=== PATIENT | female | born 1985 | race Caucasian/White ===

== ENCOUNTER 2016-10-09 22:22 | Emergency (ER) | payer MEDICAID ==
[2016-10-09 22:23] VITALS: BMI 35.9
[2016-10-09 22:30] VITALS: BP 109/49; PULSE 71; RESP 16; TEMP 98.4; O2SAT 98
--- NOTE | 2016-10-09 23:22 | ED PDOC ---
HPI: Skin/Bite Injury Time Seen by Provider: 10/09/16 23:19 Chief Complaint (Nursing): Abnormal Skin Integrity Chief Complaint (Provider): rash History Per: Patient (30 y/o female here with rash along upper arms x 2 days noted after walking outdoors. Patient states she believes symptoms began after working in sun. Notes moderate itching in upper extremities. Has tried benadryl without relief.) Past Medical History Reviewed: Historical Data, Nursing Documentation, Vital Signs Vital Signs: Last Vital Signs Temp 98.4 F 10/09/16 22:27 Pulse 71 10/09/16 22:27 Resp 16 10/09/16 22:27 BP 109/49 L 10/09/16 22:27 Pulse Ox 98 10/09/16 22:27 - Medical History PMH: Gall Bladder Disease Denies: Chronic Kidney Disease - Family History Family History: States: No Known Family Hx - Home Medications Home Medications: Ambulatory Orders Medication Instructions Recorded oxyCODONE/Acetaminophen [Percocet 1 tab PO Q4H PRN #0 tab 01/09/16 5/325 mg Tab] Cetirizine HCl [Zyrtec] 10 mg PO DAILY #7 capsule 10/09/16 Hydrocortisone 1% Oint [Cortizone 0.5 gm TP BID #1 tube 10/09/16 1% Oint] Mupirocin 2% Ointment [Bactroban 0.5 gm TP TID #1 tube 10/09/16 Ointment] - Allergies Allergies/Adverse Reactions: Allergies Allergy/AdvReac Type Severity Reaction Status Date / Time No Known Allergies Allergy Verified 07/11/15 09:06 Review of Systems ROS Statement: Except As Marked, All Systems Reviewed And Found Negative Physical Exam - Reviewed Nursing Documentation Reviewed: Yes Vital Signs Reviewed: Yes - Physical Exam Appears: Positive for: Well, Non-toxic, No Acute Distress Head Exam: Positive for: ATRAUMATIC, NORMAL INSPECTION, NORMOCEPHALIC Skin: Positive for: Normal Color, Warm, Rash (bilateral lateral aspect of arms with multiple small papular lesions nontender.) Eye Exam: Positive for: EOMI, Normal appearance, PERRL ENT: Positive for: Normal ENT Inspection Neck: Positive for: Normal, Painless ROM Cardiovascular/Chest: Positive for: Regular Rate, Rhythm Respiratory: Positive for: CNT, Normal Breath Sounds Gastrointestinal/Abdominal: Positive for: Normal Exam, Bowel Sounds, Soft Back: Positive for: Normal Inspection Extremity: Positive for: Normal ROM Neurologic/Psych: Positive for: Alert, Oriented - ECG O2 Sat by Pulse Oximetry: 98 Disposition - Clinical Impression Clinical Impression: Folliculitis - Patient ED Disposition Is Patient to be Admitted: No - Disposition Referrals: Ronnie Grigsby MD [Staff Provider] - Disposition: Routine/Home Disposition Time: 23:22 Condition: FAIR Prescriptions: Cetirizine HCl [Zyrtec] 10 mg PO DAILY #7 capsule Hydrocortisone 1% Oint [Cortizone 1% Oint] 0.5 gm TP BID #1 tube Mupirocin 2% Ointment [Bactroban Ointment] 0.5 gm TP TID #1 tube Instructions: Folliculitis (ED)
== END 2016-10-09 23:41 | disposition home or self-care (01) ==
LOC: H.ER 22:22
DX: L73.9 Follicular disorder, unspecified (principal)

== ENCOUNTER 2016-11-10 21:05 | Emergency (ER) | payer MEDICAID ==
[2016-11-10 21:05] VITALS: BMI 35.9
[2016-11-10 21:31] VITALS: BP 113/47; PULSE 61; RESP 16; TEMP 98.7; O2SAT 98
--- NOTE | 2016-11-10 22:45 | ED PDOC ---
HPI: Allergic Reaction Time Seen by Provider: 11/10/16 22:29 Chief Complaint (Nursing): Allergic Reaction History Per: Patient Additional Complaint(s): Pt. states for the past month she's had a pruritic rash throughout both her arms. Pt. was initially seen her 2 weeks ago for same and was prescribed Zyrtec , Bactroban, and Hydrocortisone 1% cream which improved the rash slightly but once she stopped using the medications rash worsened. Denies fever, pain, numbness, tingling. Past Medical History Reviewed: Historical Data, Nursing Documentation, Vital Signs Vital Signs: Last Vital Signs Temp 98.7 F 11/10/16 21:27 Pulse 61 11/10/16 21:27 Resp 16 11/10/16 21:27 BP 113/47 L 11/10/16 21:27 Pulse Ox 98 11/10/16 21:27 - Medical History PMH: Gall Bladder Disease Denies: Chronic Kidney Disease - Family History Family History: States: No Known Family Hx - Home Medications Home Medications: Ambulatory Orders Medication Instructions Recorded oxyCODONE/Acetaminophen [Percocet 1 tab PO Q4H PRN #0 tab 01/09/16 5/325 mg Tab] Cetirizine HCl [Zyrtec] 10 mg PO DAILY #7 capsule 10/09/16 Hydrocortisone 1% Oint [Cortizone 0.5 gm TP BID #1 tube 10/09/16 1% Oint] Mupirocin 2% Ointment [Bactroban 0.5 gm TP TID #1 tube 10/09/16 Ointment] Triamcinolone Acetonide 0.1% 1 appl TP BID PRN #1 tube 11/10/16 [Kenalog 0.1% CREAM] - Allergies Allergies/Adverse Reactions: Allergies Allergy/AdvReac Type Severity Reaction Status Date / Time No Known Allergies Allergy Verified 07/11/15 09:06 Review of Systems ROS Statement: Except As Marked, All Systems Reviewed And Found Negative Skin: Positive for: Rash Physical Exam - Physical Exam Appears: Positive for: Well, Non-toxic, No Acute Distress Skin: Positive for: Normal Color, Warm, Rash (multiple hypopigmented papules on both arms from upper arm to extending to hands) - ECG O2 Sat by Pulse Oximetry: 98 - Progress ED Course And Treament: Pt. instructed to f/u with dermatology for further evaluation. Disposition - Clinical Impression Clinical Impression: Rash - Patient ED Disposition Is Patient to be Admitted: No - Disposition Referrals: [facility] [Outside] Disposition: Routine/Home Disposition Time: 22:50 Condition: STABLE Prescriptions: Triamcinolone Acetonide 0.1% [Kenalog 0.1% CREAM] 1 appl TP BID PRN #1 tube PRN Reason: Rash Instructions: Acute Rash (ED) Print Language: AUSTRALIAN
== END 2016-11-10 23:28 | disposition home or self-care (01) ==
LOC: H.ER 21:05
DX: T78.40XA Allergy, unspecified, initial encounter (principal)

== ENCOUNTER 2017-08-10 23:06 | Emergency (ER) | payer MEDICAID ==
[2017-08-10 23:06] VITALS: BMI 35.9
[2017-08-10 23:14] VITALS: BP 113/65; PULSE 66; RESP 18; TEMP 98.7; O2SAT 99
--- NOTE | 2017-08-10 23:58 | ED PDOC ---
HPI: Chest Pain Time Seen by Provider: 08/10/17 23:16 Chief Complaint (Nursing): Chest Pain Chief Complaint (Provider): chest pain History Per: Patient History/Exam Limitations: no limitations Onset/Duration Of Symptoms: Days (1 day), Intermittent Episodes Quality: Sharp Associated Symptoms: denies: Nausea, Dyspnea, Diaphoresis, Syncope Additional Complaint(s): Sudden onset chest pain midsternum at 8am this morning, had to stop short during episode, resolved after <1 minute. Recurred today at 930p lasted for a few minutes and had to lie down for it to resolve. No cough or shortness of breath No leg swelling No increase stress No nausea or vomiting. PMD Dr Fisher Past Medical History Reviewed: Historical Data, Nursing Documentation, Vital Signs Vital Signs: Last Vital Signs Temp 98.7 F 08/10/17 23:11 Pulse 66 08/10/17 23:11 Resp 18 08/10/17 23:11 BP 113/65 08/10/17 23:11 Pulse Ox 99 08/12/17 14:57 - Medical History PMH: Gall Bladder Disease Denies: Chronic Kidney Disease - Surgical History Surgical History: Cholecystectomy - Family History Family History: States: Diabetes - Social History Current smoker - smoking cessation education provided: Yes Alcohol: Occasional Drugs: Denies - Home Medications Home Medications: Ambulatory Orders Medication Instructions Recorded oxyCODONE/Acetaminophen [Percocet 1 tab PO Q4H PRN #0 tab 01/09/16 5/325 mg Tab] Cetirizine HCl [Zyrtec] 10 mg PO DAILY #7 capsule 10/09/16 Hydrocortisone 1% Oint [Cortizone 0.5 gm TP BID #1 tube 10/09/16 1% Oint] Mupirocin 2% Ointment [Bactroban 0.5 gm TP TID #1 tube 10/09/16 Ointment] Triamcinolone Acetonide 0.1% 1 appl TP BID PRN #1 tube 11/10/16 [Kenalog 0.1% CREAM] Nitrofurantoin Macrocrystals 100 mg PO BID #14 cap 08/11/17 [Macrobid] - Allergies Allergies/Adverse Reactions: Allergies Allergy/AdvReac Type Severity Reaction Status Date / Time No Known Allergies Allergy Verified 07/11/15 09:06 Review of Systems ROS Statement: Except As Marked, All Systems Reviewed And Found Negative (and as per HPI) Cardiovascular: Positive for: Chest Pain, Light Headedness Physical Exam - Reviewed Nursing Documentation Reviewed: Yes Vital Signs Reviewed: Yes - Physical Exam Appears: Positive for: Non-toxic, No Acute Distress Head Exam: Positive for: ATRAUMATIC, NORMOCEPHALIC Skin: Positive for: Warm, Dry Eye Exam: Positive for: EOMI, PERRL ENT: Negative for: Pharyngeal Erythema, Tonsillar Exudate Neck: Positive for: Painless ROM, Supple Cardiovascular/Chest: Positive for: Regular Rate, Rhythm. Negative for: Murmur Respiratory: Positive for: Normal Breath Sounds. Negative for: Wheezing Gastrointestinal/Abdominal: Positive for: Soft. Negative for: Tenderness Back: Positive for: Normal Inspection. Negative for: Decreased ROM Extremity: Positive for: Normal ROM. Negative for: Deformity Lymphatic: Negative for: Adenopathy Neurologic/Psych: Positive for: Alert. Negative for: Motor/Sensory Deficits - Laboratory Results Result Diagrams: 08/11/17 00:17 08/11/17 00:17 - ECG ECG: Positive for: Interpreted By Me ECG Rhythm: Positive for: Normal QRS, Normal ST Segment, Sinus Rhythm O2 Sat by Pulse Oximetry: 99 Pulse Ox Interpretation: Normal Disposition - Clinical Impression Clinical Impression: Chest wall pain - Disposition Disposition: Transfer of Care Disposition Time: 00:00 Condition: STABLE Prescriptions: Nitrofurantoin Macrocrystals [Macrobid] 100 mg PO BID #14 cap Patient Signed Over To: Bing Dover Handoff Comments: Pending ER workup, reassessment and final ER disposition
--- NOTE | 2017-08-11 00:13 | ED PDOC ---
- Laboratory Results Result Diagrams: 08/11/17 00:17 08/11/17 00:17 - ECG O2 Sat by Pulse Oximetry: 99 Medical Decision Making Medical Decision Makin Patient signed out to provider from Dr. Alberts pending ED work up, re- evaluation, and final disposition. 0135 Labs reviewed: no clinically significant abnormalities except moderate leukocytes were present on UA. Patient is stable for discharge home with antibiotics. Dx: chest wall pain uti ~ Scribe Attestation: Documented by Mali Lazaro, acting as a scribe for Bing Dover MD. Provider Scribe Attestation: All medical record entries made by the Scribe were at my direction and personally dictated by me. I have reviewed the chart and agree that the record accurately reflects my personal performance of the history, physical exam, medical decision making, and the department course for this patient. I have also personally directed, reviewed, and agree with the discharge instructions and disposition. Disposition Counseled Patient/Family Regarding: Studies Performed, Diagnosis, Need For Followup - Clinical Impression Clinical Impression: Chest wall pain - POA Present On Arrival: None - Disposition Referrals: [facility] [Outside] [facility] [Outside] Disposition: Routine/Home Disposition Time: 01:05 Condition: IMPROVED Additional Instructions: follow up with your primary doctor in 1-2 days return to the ED with any worsening or concerning symptoms Prescriptions: Nitrofurantoin Macrocrystals [Macrobid] 100 mg PO BID #14 cap Instructions: Urinary Tract Infection, Adult (DC), Costochondritis (DC) Forms: [employer] (Hungarian), [facility] ED School/Work Excuse
[2017-08-11 00:15] LABS: SQUAMOUS EPITHIAL 14 /hpf (0-5); URINE BACTERIA RARE (<OCC); URINE BILIRUBIN NEGATIVE (NEGATIVE); URINE BLOOD NEGATIVE (NEGATIVE); URINE CLARITY CLOUDY (Clear); URINE COLOR YELLOW (YELLOW); URINE GLUCOSE (UA) NEG (Normal); URINE LEUKOCYTE ESTERASE MOD Leu/uL (Negative); URINE PROTEIN NEGATIVE (NEGATIVE); URINE UROBILINOGEN 0.2-1.0 mg/dL (0.2-1.0)
[2017-08-11 00:21] LABS: BASO # 0.1 K/uL (0.0-0.2); BASO % 0.8 % (0.0-2.0); EOS # 0.3 K/uL (0.0-0.7); EOS % 2.8 % (0.0-4.0); HEMOGLOBIN 11.5 g/dL (12.0-16.0); LYMPH % 39.1 % (20.0-40.0); MEAN CELL VOLUME 83.1 fl (81.0-99.0); MEAN CORPUSCULAR HEMOGLOBIN 27.5 pg (27.0-31.0); MEAN CORPUSCULAR HGB CONC 33.1 g/dL (33.0-37.0); MEAN PLATELET VOLUME 8.3 fl (7.2-11.7); MONO # 0.8 K/uL (0.0-0.8); NEUT # 5.1 K/uL (1.8-7.0); NEUT % 49.3 % (50.0-75.0); RBC 4.17 Mil/uL (3.80-5.20); RED CELL DISTRIBUTION WIDTH 14.6 % (11.5-14.5); WHITE BLOOD COUNT 10.3 K/uL (4.8-10.8)
[2017-08-11 00:31] LABS: ALB/GLOB RATIO 1.1 (1.0-2.1); ALBUMIN 3.9 g/dL (3.5-5.0); ALT/SGPT 34 U/L (9-52); AST/SGOT 31 U/L (14-36); BLOOD UREA NITROGEN 12 mg/dl (7-17); GFR AFRICAN-AMERICAN > 60; GFR NON-AFRICAN AMERICAN > 60
--- NOTE | 2017-08-11 10:38 | CARD ---
APPROVED REPORT EKG Measurement Heart [id number] <Conclusion> Normal sinus rhythm Normal ECG
== END 2017-08-11 02:57 | disposition home or self-care (01) ==
LOC: H.ER 23:06
DX: R07.9 Chest pain, unspecified (principal); F17.200 Nicotine dependence, unspecified, uncomplicated; N39.0 Urinary tract infection, site not specified

== ENCOUNTER 2018-04-05 20:01 | Emergency (ER) | payer MEDICAID ==
[2018-04-05 20:02] VITALS: BMI 35.9
[2018-04-05] MEDS ORDERED: Naproxen 500 MG TAB PO ONE (21:59)
--- NOTE | 2018-04-05 22:04 | ED PDOC ---
HPI: Back Time Seen by Provider: 04/05/18 21:47 Chief Complaint (Nursing): Back Pain Chief Complaint (Provider): low back pain History Per: Patient History/Exam Limitations: no limitations Onset/Duration Of Symptoms: Days (3) Current Symptoms Are (Timing): Still Present Exacerbating Factor(s): Turning, Movement, Sitting, Standing Additional Complaint(s): 32 y/o female presents for evaluation of low back pain x 3 days. 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 Patient applied icy hot patch but was not able to go to work last night due to pain. Denies fever, nausea/vomiting, abdominal pain, urinary symptoms, numbness/weakness lower extremities, bowel/bladder incontinence. Past Medical History Reviewed: Historical Data, Nursing Documentation, Vital Signs Vital Signs: Last Vital Signs Temp 97.9 F 04/05/18 21:45 Pulse 705 H 04/05/18 21:45 Resp 16 04/05/18 21:45 BP 139/65 04/05/18 21:45 Pulse Ox 100 04/05/18 21:45 - Medical History PMH: Gall Bladder Disease Denies: Chronic Kidney Disease - Surgical History Surgical History: Cholecystectomy - Family History Family History: States: Diabetes - Home Medications Home Medications: Ambulatory Orders Medication Instructions Recorded oxyCODONE/Acetaminophen [Percocet 1 tab PO Q4H PRN #0 tab 01/09/16 5/325 mg Tab] Cetirizine HCl [Zyrtec] 10 mg PO DAILY #7 capsule 10/09/16 Hydrocortisone 1% Oint [Cortizone 0.5 gm TP BID #1 tube 10/09/16 1% Oint] Mupirocin 2% Ointment [Bactroban 0.5 gm TP TID #1 tube 10/09/16 Ointment] Triamcinolone Acetonide 0.1% 1 appl TP BID PRN #1 tube 11/10/16 [Kenalog 0.1% CREAM] Nitrofurantoin Macrocrystals 100 mg PO BID #14 cap 08/11/17 [Macrobid] Cyclobenzaprine [Cyclobenzaprine 10 mg PO BID PRN #14 tab 04/05/18 HCl] Naproxen [Naprosyn] 500 mg PO Q12 PRN #20 tablet 04/05/18 - Allergies Allergies/Adverse Reactions: Allergies Allergy/AdvReac Type Severity Reaction Status Date / Time No Known Allergies Allergy Verified 04/05/18 21:45 Review of Systems ROS Statement: Except As Marked, All Systems Reviewed And Found Negative Musculoskeletal: Positive for: Back Pain Physical Exam - Reviewed Nursing Documentation Reviewed: Yes Vital Signs Reviewed: Yes - Physical Exam Appears: Positive for: Well, Non-toxic, No Acute Distress Head Exam: Positive for: ATRAUMATIC, NORMAL INSPECTION, NORMOCEPHALIC Skin: Positive for: Normal Color Eye Exam: Positive for: Normal appearance ENT: Positive for: Normal ENT Inspection Cardiovascular/Chest: Positive for: Regular Rate, Rhythm Respiratory: Positive for: Normal Breath Sounds Gastrointestinal/Abdominal: Positive for: Normal Exam Back: Positive for: Vertebral Tenderness (diffuse lspine; no bony deformity). Negative for: L CVA Tenderness, R CVA Tenderness, Decreased ROM, Muscle Spasm Extremity: Positive for: Normal ROM Neurologic/Psych: Positive for: Alert, Oriented (x3) - ECG O2 Sat by Pulse Oximetry: 100 - Other Rad xray lspine X-Ray: Viewed By Nc X-Ray Interpretation: no acute findings - Progress ED Course And Treament: -upreg -lspine xray -naproxen PO -flexeril PO Patient educated on findings, discharged with rx Naproxen, Flexeril Advised warm compresses. Rest Follow up PMD within 2-3 days Return precautions given Disposition - Clinical Impression Clinical Impression: Low back pain - Patient ED Disposition Is Patient to be Admitted: No Counseled Patient/Family Regarding: Studies Performed, Diagnosis, Need For Followup, Rx Given - Disposition Disposition: Routine/Home Disposition Time: 23:44 Condition: IMPROVED Prescriptions: Cyclobenzaprine [Cyclobenzaprine HCl] 10 mg PO BID PRN #14 tab PRN Reason: Muscle Spasm Naproxen [Naprosyn] 500 mg PO Q12 PRN #20 tablet PRN Reason: Pain, Moderate (4-7) Instructions: Low Back Pain in Adults Forms: [facility] (Ethiopian), [facility] ED School/Work Excuse
[2018-04-06 00:10] VITALS: BP 110/70; PULSE 66; RESP 18; TEMP 98.2; O2SAT 98
--- NOTE | 2018-04-06 11:50 | RAD ---
Date of service: 04/05/2018 PROCEDURE: Radiographs of the Lumbar Spine. HISTORY: low back pain COMPARISON: No prior. FINDINGS: BONES: Normal alignment. No listhesis. No fracture. DISC SPACES: Unremarkable. OTHER FINDINGS: None. IMPRESSION: Unremarkable radiographs of the lumbar spine.
== END 2018-04-06 00:11 | disposition home or self-care (01) ==
LOC: H.ER 20:01
DX: M54.5 Low back pain (principal)

== ENCOUNTER 2018-04-15 02:04 | Emergency (ER) | payer MEDICAID ==
[2018-04-15 02:04] VITALS: BMI 35.9
[2018-04-15 02:25] VITALS: BP 116/79; PULSE 64; RESP 16; O2SAT 98
[2018-04-15 03:57] LABS: SQUAMOUS EPITHIAL 13 /hpf (0-5); URINE BACTERIA RARE (<OCC); URINE BILIRUBIN NEGATIVE (NEGATIVE); URINE BLOOD LARGE (NEGATIVE); URINE CLARITY CLOUDY (Clear); URINE COLOR YELLOW (YELLOW); URINE GLUCOSE (UA) NEG (NEGATIVE); URINE LEUKOCYTE ESTERASE LARGE Leu/uL (Negative); URINE PROTEIN 100 mg/dL (NEGATIVE); URINE UROBILINOGEN 0.2-1.0 mg/dL (0.2-1.0)
--- NOTE | 2018-04-15 04:23 | ED PDOC ---
HPI: Back Time Seen by Provider: 04/15/18 02:26 Chief Complaint (Nursing): Back Pain Chief Complaint (Provider): Back Pain History Per: Patient History/Exam Limitations: no limitations Onset/Duration Of Symptoms: Hrs Previous Symptoms: Prior Injury Additional Complaint(s): 32 y/o female presents to ER for evaluation of worsening lower back pain onset tonight. Patient reports she works for [employer] where she had an injury early in March. She states she was seen here in the ED and by her PMD and reports having ligaments damage of lower back. Patient states she is scheduled for outpt MRI and to follow up with her PMD. She reports taking Flexeril and Naproxen with no improvement. PMD: Dr. Fisher Past Medical History Reviewed: Historical Data, Nursing Documentation, Vital Signs Vital Signs: Last Vital Signs Temp 97.6 F 04/15/18 02:18 Pulse 64 04/15/18 02:18 Resp 16 04/15/18 02:18 BP 116/79 04/15/18 02:18 Pulse Ox 98 04/15/18 02:18 - Medical History PMH: Gall Bladder Disease Denies: Chronic Kidney Disease - Surgical History Surgical History: Cholecystectomy - Family History Family History: States: Diabetes - Social History Current smoker - smoking cessation education provided: Yes Alcohol: Social Drugs: Denies - Home Medications Home Medications: Ambulatory Orders Medication Instructions Recorded RX: oxyCODONE/Acetaminophen 1 tab PO Q4H PRN #0 tab 01/09/16 [Percocet 5/325 mg Tab] Cetirizine HCl [Zyrtec] 10 mg PO DAILY #7 capsule 10/09/16 RX: Hydrocortisone 1% Oint 0.5 gm TP BID #1 tube 10/09/16 [Cortizone 1% Oint] RX: Mupirocin 2% Ointment 0.5 gm TP TID #1 tube 10/09/16 [Bactroban Ointment] Triamcinolone Acetonide 0.1% 1 appl TP BID PRN #1 tube 11/10/16 [Kenalog 0.1% CREAM] Nitrofurantoin Macrocrystals 100 mg PO BID #14 cap 08/11/17 [Macrobid] Cyclobenzaprine [Cyclobenzaprine 10 mg PO BID PRN #14 tab 04/05/18 HCl] RX: Naproxen [Naprosyn] 500 mg PO Q12 PRN #20 tablet 04/05/18 Nitrofurantoin Macrocrystals 100 mg PO BID #14 cap 04/15/18 [Macrobid] - Allergies Allergies/Adverse Reactions: Allergies Allergy/AdvReac Type Severity Reaction Status Date / Time No Known Allergies Allergy Verified 04/05/18 21:45 Review of Systems ROS Statement: Except As Marked, All Systems Reviewed And Found Negative Musculoskeletal: Positive for: Back Pain (Lower) Physical Exam - Reviewed Nursing Documentation Reviewed: Yes Vital Signs Reviewed: Yes - Physical Exam Appears: Positive for: Non-toxic, No Acute Distress Head Exam: Positive for: ATRAUMATIC, NORMOCEPHALIC Skin: Positive for: Normal Color, Warm, Dry Neck: Positive for: Normal, Painless ROM, Supple Cardiovascular/Chest: Positive for: Regular Rate, Rhythm. Negative for: Murmur Respiratory: Positive for: Normal Breath Sounds. Negative for: Wheezing Gastrointestinal/Abdominal: Positive for: Normal Exam, Soft. Negative for: Tenderness Back: Positive for: Normal Inspection. Negative for: L CVA Tenderness, R CVA Tenderness Extremity: Positive for: Normal ROM. Negative for: Pedal Edema, Deformity Neurologic/Psych: Positive for: Alert, change control coordinator II-XII, Oriented (x3), Gait (stable). Negative for: Motor/Sensory Deficits - ECG O2 Sat by Pulse Oximetry: 98 (RA) Pulse Ox Interpretation: Normal Medical Decision Making Medical Decision Making: Time: 321 Initial plan: lower back pain, acute on chronic (from prior injury) --Toradol --Urine culture --Urinalysis UA shows UTI pt pain better w toradol 0453 Upon reevaluation, patient is medically stable for discharge with a prescription of Macrobid for UTI. Scribe Attestation: Documented by Leann Ibarra, acting as a scribe for Bing Dover MD. Provider Scribe Attestation: All medical record entries made by the Scribe were at my direction and personally dictated by me. I have reviewed the chart and agree that the record accurately reflects my personal performance of the history, physical exam, medical decision making, and the department course for this patient. I have also personally directed, reviewed, and agree with the discharge instructions and disposition. Disposition - Clinical Impression Clinical Impression: Back pain, UTI (urinary tract infection) - Patient ED Disposition Is Patient to be Admitted: No Counseled Patient/Family Regarding: Studies Performed, Diagnosis, Need For Followup - Disposition Disposition: Routine/Home Disposition Time: 04:30 Condition: IMPROVED Additional Instructions: follow up with Dr Fisher tomorrow return to the ED with any worsening or concerning symptoms Prescriptions: Nitrofurantoin Macrocrystals [Macrobid] 100 mg PO BID #14 cap Instructions: Urinary Tract Infections in Adults, Low Back Pain (DC) Forms: [facility] (Eritrean), [facility] ED School/Work Excuse
[2018-04-15 05:04] VITALS: TEMP 97.9
== END 2018-04-15 05:05 | disposition home or self-care (01) ==
LOC: H.ER 02:04
DX: M54.5 Low back pain (principal); N39.0 Urinary tract infection, site not specified
CPT/HCPCS: 81003; 81025; 87086; 96372; 99283; J1885